=== PATIENT | male | born 1965 | race Caucasian/White ===

== ENCOUNTER 2017-07-10 14:32 | Inpatient (IN) | payer BC ==
[~2017-07-10] VITALS: Ht 193 cm; Wt 136.6 kg
[~2017-07-10 14:32] MED LIST: ALD25 PO; CLINDAMYCIN HC300 MG PO; COR3 PO; COZ25 PO; FUROSEMIDE40 MG PO; GEMFIBROZIL600 MG PO; GUAIFENESI100 MG/52 PO; HYDROCHLOROTH12.5 M2 PO; LAC PO; LANTUS SOLOS100 U/M1 SQ; LEVAQUIN750 MG PO; LEVEMIR100 U/M1 SQ; LOSARTAN POTASS25 M1 PO; METFORMIN ER500 M1 PO; METFORMIN HCL1000 MG PO; MICRO-K8 MEQ PO; NOVALOG; XARELTO20 M1 PO; ZES5 PO; ZOC10 PO
[2017-07-10 14:39] VITALS: Ht 193 cm; Wt 136.6 kg
[2017-07-10 15:45] LABS: BASOPHIL % 1.5 % (0-2)
[2017-07-10 15:47] LABS: PLATELET COUNT 128 x10^3mcL (130-400); RED CELL DISTRIBUTION WIDTH 15.2 % (11.5-14.5)
[2017-07-10 15:56] LABS: CALCIUM 7.9 mg/dL (8.5-10.1); CARBON DIOXIDE 22.1 mmol/L (21-32); CREATININE SERUM 1.8 mg/dL (0.7-1.3); POTASSIUM SERUM 3.9 mmol/L (3.5-5.1)
[2017-07-10 16:02] LABS: BILIRUBIN TOTAL 0.7 mg/dL (0.20-1.00)
[2017-07-10 16:03] LABS: ALBUMIN 2.6 g/dL (3.4-5.0); TOTAL PROTEIN, SERUM 5.3 g/dL (6.4-8.2)
[2017-07-10] MEDS ORDERED: LANTUS SOLOS100 U/M1 SQ (17:21)
[2017-07-10] MEDS ORDERED: NOVOLOG100 U/ML SC (17:23)
[2017-07-10 18:17] LABS: AMPHETAMINE QUAL UR NONE DETECTED (NEG <=1000)
[2017-07-10 18:35] VITALS: BP 98/79
[2017-07-10 18:45] LABS: CHOLESTEROL/HDL RATIO 4.3; MAGNESIUM 1.7 mg/dL (1.8-2.4); PHOSPHOROUS 5.7 mg/dL (2.5-4.9)
[2017-07-10 18:53] LABS: T3 TOTAL 1.31 ng/mL
[2017-07-10 18:56] LABS: FREE T4 1.23 ng/dL (0.76-1.46); FREE THYROXINE INDEX 2.8 ug/dL (1.4-4.5); T4(THYROXINE) 7.5 ug/dL (4.7-13.3)
[2017-07-10 19:48] VITALS: BP 136/92
[2017-07-10 21:52] VITALS: BP 109/75
[2017-07-11 01:00] VITALS: BP 112/75
[2017-07-11 03:11] LABS: RED CELL DISTRIBUTION WIDTH 14.1 % (11.5-14.5)
[2017-07-11 03:18] LABS: PLATELET COUNT 113 x10^3mcL (130-400)
[2017-07-11 03:22] LABS: CARBON DIOXIDE 25.4 mmol/L (21-32); CREATININE SERUM 1.6 mg/dL (0.7-1.3); MAGNESIUM 1.8 mg/dL (1.8-2.4); PHOSPHOROUS 5.2 mg/dL (2.5-4.9); POTASSIUM SERUM 3.5 mmol/L (3.5-5.1)
[2017-07-11 03:35] LABS: BAND NEUTROPHIL 0 % (0-10); BASOPHIL 0 % (0-2); MONOCYTE 2 % (0-7); SEGMENTED NEUTROPHILS 58 % (37-75)
[2017-07-11 03:36] LABS: PLATELET MORPHOLOGY PLATELETS DECREASED; rbc morphology (normal/abnorm) NORMAL (NORMAL)
[2017-07-11 06:05] VITALS: BP 112/75
[2017-07-11 09:12] VITALS: BP 120/86
[2017-07-11 12:37] VITALS: BP 100/79
[2017-07-11 17:26] VITALS: BP 91/75
[2017-07-11 21:33] VITALS: BP 108/66
[2017-07-12 02:54] LABS: CALCIUM 8.3 mg/dL (8.5-10.1); CARBON DIOXIDE 25.1 mmol/L (21-32); CREATININE SERUM 1.4 mg/dL (0.7-1.3); MAGNESIUM 1.7 mg/dL (1.8-2.4); PHOSPHOROUS 5.7 mg/dL (2.5-4.9); POTASSIUM SERUM 3.7 mmol/L (3.5-5.1)
[2017-07-12 03:30] LABS: PLATELET COUNT 112 x10^3mcL (130-400); RED CELL DISTRIBUTION WIDTH 14.8 % (11.5-14.5)
[2017-07-12 05:59] VITALS: BP 102/67
[2017-07-12 09:16] VITALS: BP 95/66
[2017-07-12 13:00] VITALS: BP 102/77
[2017-07-12 17:00] VITALS: BP 137/106
[2017-07-12 21:35] VITALS: BP 100/78
[2017-07-13] VITALS (8 sets, daily range): BP systolic 97–147; BP diastolic 58–95
[2017-07-13 07:03] LABS: BASOPHIL % 0.7 % (0-2)
[2017-07-13 07:04] LABS: PLATELET COUNT 104 x10^3mcL (130-400); RED CELL DISTRIBUTION WIDTH 15.5 % (11.5-14.5)
[2017-07-13 07:16] LABS: CALCIUM 8.5 mg/dL (8.5-10.1); CARBON DIOXIDE 29.9 mmol/L (21-32); CREATININE SERUM 1.7 mg/dL (0.7-1.3); MAGNESIUM 2.1 mg/dL (1.8-2.4); PHOSPHOROUS 5.4 mg/dL (2.5-4.9); POTASSIUM SERUM 3.6 mmol/L (3.5-5.1)
[2017-07-13 18:16] LABS: microscopic required? NO
[2017-07-13 18:26] LABS: urine erythrocyte NEGATIVE (NEGATIVE)
[2017-07-14 05:57] VITALS: BP 146/98
[2017-07-14 07:07] LABS: CALCIUM 8.7 mg/dL (8.5-10.1); CARBON DIOXIDE 30.4 mmol/L (21-32); CREATININE SERUM 1.6 mg/dL (0.7-1.3); PHOSPHOROUS 5.2 mg/dL (2.5-4.9); POTASSIUM SERUM 3.6 mmol/L (3.5-5.1)
[2017-07-14 07:16] LABS: BASOPHIL % 0.6 % (0-2); PLATELET COUNT 100 x10^3mcL (130-400); RED CELL DISTRIBUTION WIDTH 15.2 % (11.5-14.5)
[2017-07-14 10:06] VITALS: BP 104/74
[2017-07-14 17:47] VITALS: BP 109/90
[2017-07-14 21:28] VITALS: BP 112/83
[2017-07-15 06:04] VITALS: BP 92/63
[2017-07-15 06:35] LABS: CALCIUM 8.5 mg/dL (8.5-10.1); CARBON DIOXIDE 30.1 mmol/L (21-32); CREATININE SERUM 1.9 mg/dL (0.7-1.3); MAGNESIUM 2.1 mg/dL (1.8-2.4); PHOSPHOROUS 5.1 mg/dL (2.5-4.9); POTASSIUM SERUM 3.5 mmol/L (3.5-5.1)
[2017-07-15 06:53] LABS: BASOPHIL % 0.7 % (0-2)
[2017-07-15 07:10] LABS: PLATELET COUNT 103 x10^3mcL (130-400); RED CELL DISTRIBUTION WIDTH 15.1 % (11.5-14.5)
[2017-07-15 09:16] VITALS: BP 96/79
[2017-07-15 12:50] VITALS: BP 101/81
[2017-07-15 17:59] VITALS: BP 99/73
[2017-07-15 21:28] VITALS: BP 105/81
[2017-07-16 04:46] VITALS: BP 98/78
[2017-07-16 06:55] LABS: BASOPHIL % 0.6 % (0-2)
[2017-07-16 07:03] LABS: PLATELET COUNT 92 x10^3mcL (130-400); RED CELL DISTRIBUTION WIDTH 15.4 % (11.5-14.5)
[2017-07-16 07:07] LABS: CALCIUM 8.5 mg/dL (8.5-10.1); CREATININE SERUM 1.8 mg/dL (0.7-1.3); MAGNESIUM 2.2 mg/dL (1.8-2.4); PHOSPHOROUS 4.6 mg/dL (2.5-4.9); POTASSIUM SERUM 4.3 mmol/L (3.5-5.1)
[2017-07-16 09:55] VITALS: BP 127/47
[2017-07-16 13:44] VITALS: BP 92/67
[2017-07-16 17:34] VITALS: BP 96/75
[2017-07-16 21:53] VITALS: BP 95/74
[2017-07-17] VITALS (7 sets, daily range): BP systolic 89–120; BP diastolic 55–84
[2017-07-17 07:30] LABS: CALCIUM 8.9 mg/dL (8.5-10.1); CARBON DIOXIDE 30.4 mmol/L (21-32); CREATININE SERUM 1.6 mg/dL (0.7-1.3); MAGNESIUM 2.2 mg/dL (1.8-2.4); PHOSPHOROUS 4.9 mg/dL (2.5-4.9); POTASSIUM SERUM 3.8 mmol/L (3.5-5.1)
[2017-07-17 08:02] LABS: BASOPHIL % 0.7 % (0-2)
[2017-07-17 08:03] LABS: PLATELET COUNT 91 x10^3mcL (130-400); RED CELL DISTRIBUTION WIDTH 15.2 % (11.5-14.5)
[2017-07-17] MEDS ORDERED: XARELTO20 M1 PO (14:33)
[2017-07-17] MEDS ORDERED: XARELTO10 M1 PO (14:33)
[2017-07-18 05:09] VITALS: BP 100/76
[2017-07-18 07:11] LABS: BASOPHIL % 0.6 % (0-2)
[2017-07-18 07:33] LABS: PLATELET COUNT 89 x10^3mcL (130-400); RED CELL DISTRIBUTION WIDTH 15.8 % (11.5-14.5)
[2017-07-18 07:35] LABS: CALCIUM 8.5 mg/dL (8.5-10.1); CARBON DIOXIDE 32.6 mmol/L (21-32); CREATININE SERUM 1.5 mg/dL (0.7-1.3)
[2017-07-18 10:29] VITALS: BP 95/61
[2017-07-18 10:41] VITALS: BP 92/68
[2017-07-18 18:28] VITALS: BP 99/80
[2017-07-18 21:01] VITALS: BP 102/86
[2017-07-19 05:17] VITALS: BP 100/78
[2017-07-19 06:36] LABS: BASOPHIL % 0.7 % (0-2)
[2017-07-19 06:39] LABS: PLATELET COUNT 89 x10^3mcL (130-400); RED CELL DISTRIBUTION WIDTH 15.2 % (11.5-14.5)
[2017-07-19 07:16] LABS: CREATININE SERUM 1.4 mg/dL (0.7-1.3); POTASSIUM SERUM 4.3 mmol/L (3.5-5.1)
[2017-07-19 09:10] VITALS: BP 98/77
[2017-07-19 13:41] VITALS: BP 132/96
[2017-07-19 14:09] VITALS: BP 132/96
[2017-07-19 17:39] VITALS: BP 100/65
[2017-07-19 21:41] VITALS: BP 95/65
[2017-07-20 06:01] LABS: BASOPHIL % 0.8 % (0-2)
[2017-07-20 06:10] LABS: PLATELET COUNT 91 x10^3mcL (130-400); RED CELL DISTRIBUTION WIDTH 15.1 % (11.5-14.5)
[2017-07-20 06:16] VITALS: BP 120/76
[2017-07-20 06:16] LABS: CALCIUM 8.9 mg/dL (8.5-10.1); CARBON DIOXIDE 32.3 mmol/L (21-32); CREATININE SERUM 1.5 mg/dL (0.7-1.3); MAGNESIUM 2.1 mg/dL (1.8-2.4); PHOSPHOROUS 4.6 mg/dL (2.5-4.9); POTASSIUM SERUM 3.8 mmol/L (3.5-5.1)
[2017-07-20 13:42] VITALS: BP 114/89
[2017-07-20 17:04] VITALS: BP 130/84
[2017-07-20 20:52] VITALS: BP 112/74
[2017-07-21 05:38] VITALS: BP 109/87
[2017-07-21 07:16] LABS: CALCIUM 8.7 mg/dL (8.5-10.1); CARBON DIOXIDE 31.1 mmol/L (21-32); CREATININE SERUM 1.5 mg/dL (0.7-1.3); MAGNESIUM 2.1 mg/dL (1.8-2.4); POTASSIUM SERUM 3.8 mmol/L (3.5-5.1)
[2017-07-21 07:23] LABS: BASOPHIL % 0.6 % (0-2)
[2017-07-21 07:24] LABS: PLATELET COUNT 93 x10^3mcL (130-400); RED CELL DISTRIBUTION WIDTH 14.9 % (11.5-14.5)
[2017-07-21 09:36] VITALS: BP 110/85
[2017-07-21 12:53] VITALS: BP 105/65
[2017-07-21] MEDS ORDERED: XARELTO10 M1 PO (16:41)
[2017-07-21 17:39] VITALS: BP 107/76
[2017-07-21 21:43] VITALS: BP 99/80
[2017-07-22 05:12] VITALS: BP 98/81
[2017-07-22 06:45] LABS: CALCIUM 8.9 mg/dL (8.5-10.1); CREATININE SERUM 1.6 mg/dL (0.7-1.3); PHOSPHOROUS 5.3 mg/dL (2.5-4.9); POTASSIUM SERUM 4.2 mmol/L (3.5-5.1)
[2017-07-22 07:47] LABS: BASOPHIL % 0.5 % (0-2)
[2017-07-22 07:50] LABS: PLATELET COUNT 82 x10^3mcL (130-400); RED CELL DISTRIBUTION WIDTH 15.1 % (11.5-14.5)
[2017-07-22 09:10] VITALS: BP 121/78
[2017-07-22 12:30] VITALS: BP 107/87
[2017-07-22] MEDS ORDERED: LEXAPRO10 MG PO (17:08)
[2017-07-22] MEDS ORDERED: ALD25 PO (17:08)
[2017-07-22] MEDS ORDERED: PHOS PO (17:08)
[2017-07-22] MEDS ORDERED: ACCU-CHEK1 EACH MC (17:08)
[2017-07-22] MEDS ORDERED: LEVEMIR100 U/M1 SQ (17:08)
[2017-07-22] MEDS ORDERED: ECO81 PO (17:08)
[2017-07-22] MEDS ORDERED: VENTOLIN H0.09 MG/A1 INH (17:08)
[2017-07-22] MEDS ORDERED: ZES20 PO (17:08)
[2017-07-22] MEDS ORDERED: EASY COMFORT I1 EAC1 MC (17:08)
[2017-07-22] MEDS ORDERED: PRI20 PO (17:08)
[2017-07-22] MEDS ORDERED: FUROSEMIDE40 MG PO (17:08)
[2017-07-22] MEDS ORDERED: COR6 PO (17:08)
[2017-07-22] MEDS ORDERED: LIPI20 PO (17:08)
[2017-07-22] MEDS ORDERED: BG FS (17:08)
[2017-07-22] MEDS ORDERED: SIMETHICONE80 MG CH (17:08)
[2017-07-22] MEDS ORDERED: GLU10 PO (17:08)
[2017-07-22] MEDS ORDERED: COU10 PO (17:08)
[2017-07-22] MEDS ORDERED: HUMULIN R100 U/1 M1 SC (17:11)
[2017-07-22 17:12] VITALS: BP 101/81
[2017-07-22 18:15] VITALS: BP 101/81
== END 2017-07-22 18:52 | disposition home or self-care (01) | DRG 291 ==
LOC: ED 14:32 → DU 16:47
PROVIDERS: Emergency Medicine; Family Medicine; Family Medicine Sports Medicine; Student in an Organized Health Care Education/Training Program
DX: I11.0 Hypertensive heart disease with heart failure (principal); N17.0 Acute kidney failure with tubular necrosis; E43 Unspecified severe protein-calorie malnutrition; J96.00 Acute respiratory failure, unspecified whether with hypoxia or hypercapnia; R65.10 Systemic inflammatory response syndrome (SIRS) of non-infectious origin without acute organ dysfunction; I82.431 Acute embolism and thrombosis of right popliteal vein; I50.43 Acute on chronic combined systolic (congestive) and diastolic (congestive) heart failure; E11.65 Type 2 diabetes mellitus with hyperglycemia; D69.6 Thrombocytopenia, unspecified; E83.42 Hypomagnesemia; E83.51 Hypocalcemia; I42.0 Dilated cardiomyopathy; I25.10 Atherosclerotic heart disease of native coronary artery without angina pectoris; E83.39 Other disorders of phosphorus metabolism; E78.1 Pure hyperglyceridemia; I34.0 Nonrheumatic mitral (valve) insufficiency; I48.2 Chronic atrial fibrillation; G47.33 Obstructive sleep apnea (adult) (pediatric); E66.01 Morbid (severe) obesity due to excess calories; I87.2 Venous insufficiency (chronic) (peripheral); K21.9 Gastro-esophageal reflux disease without esophagitis; F41.9 Anxiety disorder, unspecified; F32.9 Major depressive disorder, single episode, unspecified; R74.0 Nonspecific elevation of levels of transaminase and lactic acid dehydrogenase [LDH]; M94.0 Chondrocostal junction syndrome [Tietze]; Z79.4 Long term (current) use of insulin; Z91.14 Patient's other noncompliance with medication regimen; Z90.49 Acquired absence of other specified parts of digestive tract; Z68.36 Body mass index [BMI] 36.0-36.9, adult; Z87.01 Personal history of pneumonia (recurrent); Z83.6 Family history of other diseases of the respiratory system
CPT/HCPCS: 82962; 83880; 84439; J1200; J1644; J1940; J2060; J2270; J2405; J3475; J7030; J7620; Q0092; Q0163